=== PATIENT | female | born 1995 | race Two or more races ===

== ENCOUNTER 2024-03-08 19:21 | Emergency (ER) | payer OTHER ==
[2024-03-08 19:29] VITALS: BMI 30.4
[2024-03-08] MEDS ORDERED: ACETAMINOPHEN 325 MG TABLET (FP) ONE (20:05)
[2024-03-08] MEDS: ACETAMINOPHEN 325 MG TABLET (FP) PO ONE (20:22)
[2024-03-08 20:27] LABS: BASO % 0.9 % (0-2.0); HEMOGLOBIN 13.6 GM/dL (10.7-15.3); LYMPH % 24.1 % (8-40); MCHC 34.1 g/dl (32.0-36.0); MEAN PLT VOLUME 8.6 fl (7.5-11.1); MONO % 7.7 % (3.8-10.2); NEUT % 66.3 % (42.8-82.8); PLATELET COUNT 304 10^3/uL (134-434); RBC 4.39 M/mm3 (3.60-5.2); RDW 12.5 % (11.6-15.6); WHITE BLOOD COUNT 9.8 K/mm3 (4.0-10.0)
[2024-03-08 20:33] LABS: EPI CELLS >36 /uL (0-25.1); HYALINE CASTS 1 /uL (0-3.1); URINE APPEARANCE CLEAR; URINE BACTERIA 408 /uL (0-1359); URINE BILIRUBIN NEGATIVE (NEGATIVE); URINE COLOR YELLOW; URINE GLUCOSE (UA) NEGATIVE (NEGATIVE); URINE KETONE NEGATIVE (NEGATIVE); URINE LEUK ESTERASE TRACE (NEGATIVE); URINE NITRITE NEGATIVE (NEGATIVE); URINE PROTEIN NEGATIVE (NEGATIVE); URINE RBC 87 /uL (0-23.9); URINE WBC 44 /uL (0-25.8)
[2024-03-08 20:34] LABS: HCG,QUALITATIVE URINE Negative
[2024-03-08 20:56] LABS: CHLORIDE 106 mmol/L (98-107); POTASSIUM 3.9 mmol/L (3.5-5.1); SODIUM 135 mmol/L (136-145)
[2024-03-08 20:58] LABS: ANION GAP 3 mmol/L (4-13); BLOOD UREA NITROGEN 9.3 mg/dL (7-18); CALCIUM 9.1 mg/dL (8.5-10.1); CO2 26 mmol/L (21-32); GLUCOSE,RANDOM 75 mg/dL (74-106)
[2024-03-08 21:01] LABS: CREATININE 0.8 mg/dL (0.55-1.3); SGOT/AST 14 U/L (15-37); SGPT/ALT 25 U/L (13-61)
[2024-03-08 21:03] LABS: BILIRUBIN,TOTAL 0.5 mg/dL (0.2-1); TOT PROT 7.4 g/dl (6.4-8.2)
[2024-03-08 21:04] LABS: ALK PHOS 77 U/L (45-117)
[2024-03-08 21:53] LABS: HIV INTERPRETATION NEGATIVE (NEGATIVE)
[2024-03-08] MEDS ORDERED: LIDOCAINE HCL 1%, 10 MG/ML (20ML VIAL) ONE (23:26)
[2024-03-08] MEDS ORDERED: DOXYCYCLINE HYCLATE 100 MG CAPSULE PO ONE (23:26)
[2024-03-08] MEDS ORDERED: metroNIDAZOLE 250 MG TABLET ONE (23:26)
[2024-03-08] MEDS ORDERED: cefTRIAXone SODIUM 1 GM VIAL ONE (23:27)
[2024-03-08] MEDS: DOXYCYCLINE HYCLATE 100 MG CAPSULE PO ONE (23:42)
[2024-03-08] MEDS: LIDOCAINE HCL 1%, 10 MG/ML (50 mL VIAL) SQ ONE (23:42)
[2024-03-08] MEDS: metroNIDAZOLE 250 MG TABLET PO ONE (23:42)
[2024-03-09 01:01] VITALS: BP 119/76; PULSE 90; RESP 18; TEMP 97.4
== END 2024-03-09 01:11 | disposition home or self-care (01) ==
LOC: JER 19:21
DX: R10.30 Lower abdominal pain, unspecified (principal); R10.2 Pelvic and perineal pain; N83.201 Unspecified ovarian cyst, right side
CPT/HCPCS: 36415; 76830-TC; 80053; 81003; 84702; 84703; 85025; 86850; 86870; 86880; 86900; 86901; 86902; 87086; 87186; 87389; 87491; 87591; 87661; 99284-25